=== PATIENT | female | born 2005 | race Caucasian/White ===

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

== ENCOUNTER 2023-05-04 13:25 | Emergency (ER) | payer OTHER ==
[2023-05-04 14:23] VITALS: BP 107/67; PULSE 81; RESP 18; TEMP 98; BMI 34.6
[2023-05-04 17:49] LABS: PH,URINE 6.5 (5.0-8.0); URINE APPEARANCE CLOUDY; URINE BILIRUBIN NEGATIVE (NEGATIVE); URINE COLOR YELLOW; URINE GLUCOSE (UA) NEGATIVE (NEGATIVE); URINE KETONE NEGATIVE (NEGATIVE); URINE LEUK ESTERASE NEGATIVE (NEGATIVE); URINE NITRITE NEGATIVE (NEGATIVE); URINE PROTEIN TRACE (NEGATIVE); URINE UROBILINOGEN 0.2 mg/dL (0.2-1.0)
[2023-05-04 17:52] LABS: HCG,QUALITATIVE URINE Negative
[2023-05-04] MEDS ORDERED: ONDANSETRON 4 MG/2 ML VIAL ONE (18:28)
[2023-05-04] MEDS ORDERED: ACETAMINOPHEN INJECTION 100 ML IVPB ONE ×2 (18:30→20:46)
[2023-05-04 18:39] LABS: BASO % 0.1 % (0-2.0); HEMATOCRIT 39.6 % (32.4-45.2); HEMOGLOBIN 13.6 GM/dL (10.7-15.3); LYMPH % 4.1 % (8-40); MCH 27.8 pg (25.7-33.7); MCHC 34.5 g/dl (32.0-36.0); MEAN CELL VOLUME 80.6 fl (80-96); MONO % 1.2 % (3.8-10.2); NEUT % 94.6 % (42.8-82.8); PLATELET COUNT 443 10^3/uL (134-434); RBC 4.91 M/mm3 (3.60-5.2); RDW 13.3 % (11.6-15.6); WHITE BLOOD COUNT 14.7 K/mm3 (4.0-10.0)
[2023-05-04] MEDS: SODIUM CHLORIDE 0.9% 1000 ML INFUS.BAG IV ONE ×3 (18:43→20:44)
[2023-05-04] MEDS: ONDANSETRON 4 MG/2 ML VIAL IVPUSH ONE (18:44)
[2023-05-04] MEDS ORDERED: FAMOTIDINE 10 MG/ML VIAL IVPB ONE (18:49)
[2023-05-04] MEDS ORDERED: FAMOTIDINE 20 MG/50 ML IVPB 20 MG/50 ML MG IVPB ONE ×2 (18:50→20:46)
[2023-05-04 18:57] LABS: POTASSIUM 4.1 mmol/L (3.5-5.1)
[2023-05-04 19:00] LABS: ALBUMIN 4.6 g/dl (3.4-5.0); BLOOD UREA NITROGEN 17.4 mg/dL (7-18)
[2023-05-04 19:04] LABS: CREATININE 0.9 mg/dL (0.55-1.3); TOT PROT 8.7 g/dl (6.4-8.2)
[2023-05-04 19:05] LABS: BILIRUBIN,TOTAL 0.9 mg/dL (0.2-1)
[2023-05-04 19:36] LABS: OVALOCYTE 1+
[2023-05-04 19:39] LABS: PLATELET ESTIMATE ADEQUATE
[2023-05-04] MEDS: FAMOTIDINE 20 MG/50 ML IVPB 20 MG/50 ML MG IVPB ONE (20:44)
[2023-05-04] MEDS: ACETAMINOPHEN 1000 MG/100 ML BAG IVPB ONE (20:44)
== END 2023-05-04 20:52 | disposition home or self-care (01) ==
LOC: JER 13:25
PROC: 3E033GC Introduction of Other Therapeutic Substance into Peripheral Vein, Percutaneous Approach (ICD-10-PCS; principal; 2023-05-04)
PROC: 3E033NZ Introduction of Analgesics, Hypnotics, Sedatives into Peripheral Vein, Percutaneous Approach (ICD-10-PCS; 2023-05-04)
PROC: 3E033GC Introduction of Other Therapeutic Substance into Peripheral Vein, Percutaneous Approach (ICD-10-PCS; 2023-05-04)
DX: R11.2 Nausea with vomiting, unspecified (principal); R19.7 Diarrhea, unspecified; R50.9 Fever, unspecified; R10.84 Generalized abdominal pain; K52.9 Noninfective gastroenteritis and colitis, unspecified; Z20.822 Contact with and (suspected) exposure to COVID-19
CPT/HCPCS: 0241U-QW; 36415; 80053; 81003; 83690; 84703; 85025; 87086; 96365; 96375; 99284-25; J0131